=== PATIENT | female | born 1975 | race Caucasian/White ===

== ENCOUNTER → 2020-01-03 | Outpatient (CLI) | payer OTHER | LOC: CAT 14:42 | DX: Z13.6 Encounter for screening for cardiovascular disorders (principal); E78.00 Pure hypercholesterolemia, unspecified; I25.10 Atherosclerotic heart disease of native coronary artery without angina pectoris ==

== ENCOUNTER → 2021-09-12 | Outpatient (CLI) | payer OTHER | LOC: SJCVCIMAG 11:58 | PROVIDERS: ATTEND Internal Medicine Cardiovascular Disease | DX: R00.0 Tachycardia, unspecified (principal); Z82.49 Family history of ischemic heart disease and other diseases of the circulatory system ==